=== PATIENT | female | born 1965 | race Caucasian/White ===

== ENCOUNTER 2018-05-05 07:25 | Inpatient (IN) | payer OTHER ==
[2018-05-05] VITALS (13 sets, daily range): BP systolic 93–136; BP diastolic 46–86
[~2018-05-05] VITALS: Ht 167.6 cm; Wt 84.8 kg
[2018-05-05] MEDS ORDERED: Dexamethasone 4mg/ml vial ONE (07:33)
--- NOTE | 2018-05-05 08:16 | Pre-Procedure Note/Attestation ---
Pre-Procedure Note/Attestation Complete Prior to Procedure Procedure Narrative: C34 HWR, then ACDF. Post Fusion C3-6 Indications for Procedure Pre-Operative Diagnosis: Malpositioned ADR c34, Pseudoarthrosis C56 Attestation I attest that I discussed the nature of the procedure; its benefits; risks and complications; and alternatives (and the risks and benefits of such alternatives ), prior to the procedure, with the patient (or the patient's legal compliance representative dealer). I attest that, if there was a reasonable possibility of needing a blood transfusion, the patient (or the patient's legal compliance representative dealer) was given the [facility] standardized written summary, pursuant to the [place] Blood Safety Act ([place] Health and Safety Code # 1645, as amended). I attest that I re-evaluated the patient just prior to the surgery and that there has been no change in the patient's H&P, except as documented below: Dwayne Berumen MD May 05, 2018 08:16
--- NOTE | 2018-05-05 08:17 | Brief Operative Note ---
Immediate Post Operative Note Operative Note Pre-op Diagnosis: Malpositioned ADR c34, Pseudoarthrosis C56 Procedure: C34 HWR, then ACDF. Post Fusion C3-6, B foraminotomy C56 Post-op Diagnosis: same as pre-op Findings: consistent w/pre-op dx studies Surgeon: brandon Stabilizer Operator: tyson roach Anesthesiologist: venkata Anesthesia: general Specimen: yes Complications: none Condition: stable Fluids: 1 l cryst, 250 albumin Estimated Blood Loss: volume - 150 Drains: hemovac Implant(s) used?: Yes - ldr ant peek/ cage, spinal elements post lat mass screws Dwayne Berumen MD May 05, 2018 08:17
[2018-05-05] MEDS ORDERED: BENAZEPRIL HCL20 MG ORAL (08:27)
[2018-05-05] MEDS ORDERED: Thrombin 5000 units TOPIC ONE ×5 (08:47→13:16)
[2018-05-05] MEDS ORDERED: Vancomycin 1gm vial IVPB ONE ×2 (08:47→08:56)
[2018-05-05] MEDS ORDERED: Bacitracin Oint 15gm Tube TOPIC ONE (08:47)
[2018-05-05] MEDS ORDERED: Bacitracin 50000 Units Vial ONE ×2 (08:48→08:49)
[2018-05-05] MEDS ORDERED: Gelfoam Size TOPIC ONE ×2 (08:48→08:49)
[2018-05-05] MEDS ORDERED: Bupivacaine w/Epi 0.5% 30ml Vial INJ ONE ×2 (08:48→12:52)
[2018-05-05] MEDS ORDERED: Midazolam 2mg/2ml Inj ONE (08:53)
[2018-05-05] MEDS ORDERED: fentaNYL 100 mcg/2 mL IV ONE ×2 (08:53→13:09)
[2018-05-05] MEDS ORDERED: Lidocaine 1% MPF 10mg/ml 5ml ONE (08:56)
[2018-05-05] MEDS ORDERED: Phenylephrine 10mg/ml Vial ONE (08:56)
[2018-05-05] MEDS ORDERED: Zemuron 50mg/5ml Inj IV ONE (09:05)
[2018-05-05] MEDS ORDERED: Succinylcholine 20mg/ml 10ml vial ONE (09:05)
--- NOTE | 2018-05-05 10:46 | Anethesia Preoperative Eval ---
Anesthesia Pre-op PMH/ROS General Date of Evaluation: May 05, 2018 Time of Evaluation: 09:20 Anesthesiologist: Maria M ASA Score: ASA 2 Mallampati Score Class I : Soft palate, uvula, fauces, pillars visible Class II: Soft palate, uvula, fauces visible Class III: Soft palate, base of uvula visible Class IV: Only hard plate visible Mallampati Classification: Class II Surgeon: Ata Diagnosis: Cervical radiculopathy Surgical Procedure: Revision of C3-C4 ACDF and posterior cervical spine fusion Anesthesia History: none Family History: no anesthesia problems Allergies: Coded Allergies: PEANUT (Verified Allergy, Severe, 05/05/18) THROAT SWELLS UP PENICILLINS (Verified Allergy, Severe, 05/05/18) THROAT SWELLS UP Medications: see eMAR Patient NPO?: Yes NPO Date: May 04, 2018 NPO Time: 1900 Past Medical History Cardiovascular: Reports: HTN - stable; Denies: CAD, [place], valve dz, arrhythmia, other Pulmonary: Denies: asthma, COPD, MOIRA, other Gastrointestinal/Genitourinary: Reports: GERD - mild; Denies: CRI, ESRD, other Neurologic/Psychiatric: Reports: depression/anxiety, other - chronic pain; Denies: dementia, CVA, TIA Endocrine: Denies: DM, hypothyroidism, steroids, other HEENT: Denies: cataract (L), cataract (R), glaucoma, CACHIL DEHE (L), CACHIL DEHE (R), other Hematology/Immune: Denies: anemia, DVT, bleeding disorder, other Musculoskeletal/Integumentary: Denies: OA, RA, DJD, DDD, edema, other Other: obesity PMH Narrative: as above PSxH Narrative: ACDF ACL repair Anesthesia Pre-op Phys. Exam Physician Exam Last Vital Signs Date Time Temp Pulse Resp B/P (MAP) Pulse Ox O2 Delivery O2 Flow Rate FiO2 05/05/18 08:10 98.0 74 18 136/86 (103) 97 05/05/18 08:10 Room Air Constitutional: NAD Neurologic: CN 2-12 intact Cardiovascular: RRR, no M/R/G Respiratory: CTA Gastrointestinal: S/NT/ND Airway Exam Mallampati Score: Class II MO: full Neck: stiff ROM: limited Teeth: intact Dentures: no upper, no lower Anesthesia Pre-op A/P Labs see chart Studies Pre-op Studies: EKG - NSR Risk Assessment & Plan Assessment: ASA 2 Plan: GA with ETT PONV prevention, neuromonitoring , supine and prone positions Status Change Before Surgery: No Pre-Antibiotics Drug: Ancef 2gr. Given Within 1 Hr of Incision: Yes Time Given: 10:12 Armen Franz MD May 05, 2018 10:46
[2018-05-05] MEDS: Thrombin 5000 units TOPIC ONE ×2 (10:49→13:21)
[2018-05-05] MEDS ORDERED: Morphine Sulfate 10mg/ml Inj ONE (11:30)
[2018-05-05] MEDS ORDERED: Sodium Chloride 10ml vial INJ ONE (11:31)
[2018-05-05] MEDS ORDERED: Propofol 200mg/20ml IV ONE ×2 (12:06→14:12)
--- NOTE | 2018-05-05 12:44 | NUR ---
CASE MANAGEMENT:REVIEW 05/05/18 52 YR OLD FEMALE HERE FOR ELECTIVE SURGERY SI: MALPOSITION ADR C3/4. PSEUDOARTHROSIS C5/6 98.0 74 18 136/86 97% ON RA IS: TO SURGERY FOR CERVICAL DISCECTOMY AND FUSION : CURRENTLY IN SURGERY INTERQUALL CRITERIA MET
[2018-05-05] MEDS ORDERED: Glycopyrrolate 0.2mg/ml 1ml Vial ONE (13:17)
[2018-05-05] MEDS ORDERED: Neostigmine 1mg/ml 10ml Inj ONE (13:17)
[2018-05-05] MEDS ORDERED: LR 1000ml 1,000 ML IVLG SCH (13:35)
[2018-05-05] MEDS ORDERED: DiphenhydrAMINE 50mg/ml Inj IVP PRN ×2 (13:45→14:45)
[2018-05-05] MEDS ORDERED: Ketorolac 30mg Inj IV PRN (13:45)
[2018-05-05] MEDS ORDERED: Acetaminophen (Non formulary) 100 ML IV ONE (13:45)
[2018-05-05] MEDS ORDERED: Midazolam 2mg/2ml Inj IVP PRN (13:45)
[2018-05-05] MEDS ORDERED: Metoclopramide 10mg/2ml Inj IVP PRN ×2 (13:45→15:15)
[2018-05-05] MEDS ORDERED: Meperidine 50mg/ml Inj(FOR RIGORS ONLY) IV PRN (13:45)
[2018-05-05] MEDS ORDERED: Hydromorphone 0.5mg/0.5ml inj IVP PRN (13:45)
[2018-05-05] MEDS ORDERED: Ketorolac 30mg Inj ONE (14:38)
[2018-05-05] MEDS ORDERED: Rate Change PCA 1 Each MISC PRN (14:45)
[2018-05-05] MEDS ORDERED: PCA Education Pamphlet MISC ONE (14:45)
[2018-05-05] MEDS ORDERED: PCA HYDROmorphone 1mg/ml 30 ML IV PRN ×2 (14:45→18:56)
[2018-05-05] MEDS ORDERED: Naloxone 0.4mg/ml Inj IVP PRN (14:45)
[2018-05-05] MEDS ORDERED: Milk of Magnesia 30ml Ud ORAL PRN (15:15)
--- NOTE | 2018-05-05 15:54 | Immediate Post-Op Evaluation ---
Immediate Post-Op Evalulation Immediate Post-Op Evalulation Procedure: Revision of ACDF C3-C4, Laminotomy with decompression and interbody fusion Date of Evaluation: May 05, 2018 Time of Evaluation: 15:52 IV Fluids: 1200 Blood Products: Albumin 250 Estimated Blood Loss: 150 Urinary Output: 300 Blood Pressure Systolic: 104 Blood Pressure Diastolic: 58 Pulse Rate: 84 Respiratory Rate: 20 O2 Sat by Pulse Oximetry: 99 Temperature (Fahrenheit): 97.7 Pain Score (1-10): 2 Nausea: No Vomiting: No Complications none Patient Status: reacts, patent, extubated, none Hydration Status: adequate Armen Franz MD May 05, 2018 15:54
--- NOTE | 2018-05-05 17:00 | NUR ---
NURSE NOTES: REC'D FROM PACU SP HARDWARE REMOVAL C3-C4, ACDF C3-C4. POSTERIOR FUSION C3-C6, BILATERAL FORAMINOTOMY C5-C6. DROWSY BUT AROUSABLE. V/S TAKEN. PAIN SCALE 5/10. IV INFUSING . WITH JAVA PROGRAMMER DILAUDID. INSTURCTED TO PUSH PAIN BUTTON NEEDED. ANTERIOR AND POSTERIOR DRESSING DRY AND INTACT. ICE PACK ON. HEMOVAC IN PLACE DRAINING SERO SANGUINOUS DRAINAGE. NO C/O NUMBNESS/ TINGLING BOTH HANDS. IN NO ACUTE DISTRESS.
--- NOTE | 2018-05-05 17:38 | NUR ---
NURSE NOTES: DR Tony ENGEL CALLED RE PT'S [facility]. WILL SEE PT LATER.
[2018-05-05] MEDS: D5 1/2NS 1,000 ML IV SCH (18:15)
[2018-05-05] MEDS: ceFAZolin sod 1 GM in D5W 55 ML IV SCH (18:16)
[2018-05-05] MEDS: Docusate Sod/Senna tab ORAL SCH (18:20)
--- NOTE | 2018-05-05 18:39 | Cardiology Progress Note ---
Assessment/Plan Status Narrative [id number] Objective Last 24 Hour Vital Signs Date Time Temp Pulse Resp B/P (MAP) Pulse Ox O2 Delivery O2 Flow Rate FiO2 05/05/18 17:00 17 05/05/18 16:51 97.9 81 15 112/65 96 Nasal Cannula 3 05/05/18 16:46 97.9 05/05/18 16:46 97.9 05/05/18 16:45 15 05/05/18 16:37 79 17 108/67 95 Nasal Cannula 3 05/05/18 16:30 13 05/05/18 16:29 97.8 05/05/18 16:16 78 18 108/65 100 Nasal Cannula 3 05/05/18 16:15 15 05/05/18 16:05 82 18 108/66 100 Simple Mask 6 05/05/18 15:59 18 05/05/18 15:54 83 11 104/58 100 Simple Mask 6 05/05/18 15:54 84 20 99 05/05/18 15:49 93 15 93/46 100 Simple Mask 6 05/05/18 15:44 97.5 90 20 103/52 99 Simple Mask 6 05/05/18 08:10 98.0 74 18 136/86 (103) 97 05/05/18 08:10 Room Air Sanju Huffman MD May 05, 2018 18:39
[2018-05-05] MEDS ORDERED: Chloraseptic Spray 20mL Bottle ORAL ONE (18:45)
[2018-05-05] MEDS ORDERED: HYDROcodone/Acetamin 10/325 tab ORAL PRN (18:45)
[2018-05-05] MEDS ORDERED: Cyclobenzaprine 10mg Tab ORAL PRN (18:45)
[2018-05-05] MEDS ORDERED: Chloraseptic Spray 20mL Bottle ORAL PRN (18:54)
[2018-05-05] MEDS: PCA shift volume MISC SCH (19:00)
--- NOTE | 2018-05-05 19:00 | NUR ---
NURSE NOTES: RESTING. IN NO ACUTE DISTRESS.
--- NOTE | 2018-05-05 19:35 | NUR ---
NURSE NOTES: Received report & pt from DOMINGA Sun. Pt lying in bed, a&ox4, on O2 via NC @ 3LPM. No s/s of acute distress & c/o 5/10 pain. Pt's pain managed by LABOR LAW PROFESSOR pump. Red intact & draining yellow urine output to gravity. Hemovac intact & compressed. Surgical dressing anterior C/D/I with stain & posterior C/D/I. IV site intact with IVF running as ordered. Bed in lowest position, call light & LABOR LAW PROFESSOR pump within reach. Will continue to monitor.
--- NOTE | 2018-05-05 20:00 | Operative Note - Dictated ---
DATE OF OPERATION: 05/05/2018 SURGEON: Dwayne Berumen M.D. PREOPERATIVE DIAGNOSES: 1. Status post prior cervical fusion at C5-C6 and C4-C5 with artificial disk replacement, C3-C4. 2. Malposition and dysfunctional artificial disk, C3-C4. 3. Pseudoarthrosis, C5-C6. 4. Radiculopathy, left greater than right. OPERATIVE PROCEDURE IN DETAIL: 1. Removal of artificial disk prosthesis, ProDisc-C, cervical spine, C3-C4. 2. Partial corpectomy, inferior portion of C3 and superior portion of C4 with neural foraminotomies and uncovertebrectomies partial, C3-C4. 3. Interbody fusion using cervical LDR implants. 4. Use of local autograft and Signafuse allograft. 5. Anterior instrumentation using LDR plates. 6. Use of operating microscope. 7. Neurodiagnostic monitoring. 8. Use of fluoroscopy. ESTIMATED BLOOD LOSS: 30 mL. INDICATIONS: The patient is a very pleasant woman, status post prior cervical fusion at C4, C5, C6 and artificial disk at C3-C4, implant at C3-C4, malpositioned, requiring revision. Pros, cons, risks and benefits have been discussed and she elected to proceed. OPERATIVE PROCEDURE IN DETAIL: The patient was taken to the operating suite. After general endotracheal anesthesia was obtained, Red catheter was placed. The neck was then prepped and draped in usual sterile fashion after a localizer confirmed the incision site. At this point, the skin was infiltrated with Marcaine with epinephrine. A transverse incision was carried out on the right side at C3-C4 through a skin crease and was taken down through the subcutaneous. Platysma was incised, using a Bovie. Interval medial to the sternocleidomastoid was identified. Carotid sheath was palpated. The interval, then medial to the sternocleidomastoid was bluntly dissected and taken down to the prevertebral fascia. Shadow-Line retractors were put in place. A needle was placed into the levels, felt to be at the C3-C4 level and this was confirmed. Bovie was used to remove excess scar tissue. Mcallen posts were put into place to apply gentle distraction across the disk space. There was a moderate amount of heterotopic ossification, which was needed to be removed in order to remove the prosthesis. Once gentle distraction was obtained, osteotome was used to disrupt the interface of the polyethylene and the metallic endplate inferiorly. This then allowed for removal of the polyethylene. At this point, a quarter-inch osteotome was placed at the interface of the implants and the bone, and this allowed for removal of the implants. Once this was completed, under high-power microscopic visualization, partial corpectomy of inferior portion of C3 and superior portion of C4 was performed. Complete uncovertebrectomies were performed bilaterally. The posterior osteophytes were also removed with meticulous micro techniques using a high-speed drill as well as Microsect curette and Microsect malou. Once satisfied with the posterior decompression as well as a foraminal decompression, the appropriate sized LDR cage was then packed with local autograft and Signafuse. The implant was inserted and under fluoroscopic guidance, it was noted to be in excellent position. The inferior and subsequently superior plates were inserted while pulling back on the law to avoid retropulsion. At this point, once satisfied with fixation, decision was made to remove all Mcallen posts and the display artist. Additional bone graft was used to fill in the ProDisc-C keel channel. Copious irrigation was achieved. Meticulous hemostasis was achieved. Medium-size Hemovac drain was placed. Platysma was repaired using 3-0 Vicryl and subcutaneous closure using 4-0 Vicryl. Dermabond was applied. Sterile dressing was applied prior to repositioning and unfortunately, the drain pulled out. Decision was kept to monitor the patient. A wake-up test was performed before starting the posterior procedure. Sponge and needle counts for this procedure was correct. Dwayne Marian Berumen DR: CHRISTIANO JOB#: [id number] CC:
--- NOTE | 2018-05-05 21:21 | NUR ---
NURSE NOTES: Pt had clear emesis 200ml. Zofran PRN given as ordered. Will continue to monitor.
--- NOTE | 2018-05-05 22:15 | Operative Note - Dictated ---
DATE OF OPERATION: 05/05/2018 SURGEON: Dwayne Berumen M.D. MATTRESS INSPECTOR: Gautam Orosco PA-C. ANESTHESIA: Armen Franz M.D. ANESTHESIA TYPE: General endotracheal anesthesia. PREOPERATIVE DIAGNOSES: 1. Status post anterior fusion, C3-C4. 2. Status post hardware removal, C3-C4. 3. Pseudoarthrosis, C5-C6. POSTOPERATIVE DIAGNOSES: 1. Status post anterior fusion, C3-C4. 2. Status post hardware removal, C3-C4. 3. Pseudoarthrosis, C5-C6. PROCEDURE: 1. Posterior spinal fusion, C3, C4, C5, C6. 2. Lateral mass screw fixation bilaterally, C4, C5, C6. 3. Bilateral laminal foraminotomies, C5-C6. 4. Use of operating microscope. 5. Use of fluoroscopy. 6. Neurodiagnostic monitoring. ESTIMATED BLOOD LOSS: Total 150. FLUIDS: In total 1 liter crystalloid and 250 albumin. INDICATIONS: The patient is a very pleasant woman who previously had undergone cervical fusion C4, C5, C6 artificial disc, C3-C4 requiring hardware removal and refusion at the C3-C4. She required posterior fixation and stabilization C3 through C6. Pros, cons, risks and benefits of surgery were discussed. She elected to proceed. RISK NOTE: The patient was explained in detail risks, benefits of surgery to include, but not be limited to those of bleeding, infection, damage to nerves, vessels, and tendons, anesthetic risk, allergic reaction, aspiration, possibly . The patient understood and wished to proceed. OPERATIVE PROCEDURE IN DETAIL: Under benefits of general anesthesia, the patient was turned prone onto a radiolucent table after Plata pins were attached and she was attached firmly to the [place] head support. Chest bolsters were in place. All bony prominences were well padded. The knees were bent. The posterior neck was prepped and draped in usual sterile fashion. Fluoroscopically the levels were verified. Skin was infiltrated with use of Marcaine with epinephrine. Incision was carried out from C3 through C7. Subperiosteal dissection was carried out bilaterally. Localization was confirmed at the C3-C4 level. At this point, facilities plant engineer holes were then made at C3, C4, C5, and C6 bilaterally using a high-speed drill. The 12 mm drill guide 2.0 was then chosen and the lateral mass screw holes were all drilled through. Pedicle sound was used to verify bony contact throughout. At this point, under microscopic visualization, hemilaminectomy was performed and foraminotomy first on the left then on the right at C5-C6 using standard fashion by removing inferior portion of C5 superior portion of C6 as well as the medial facet. The nerve roots were clearly very compressed. Kerrison punch and Microsect curettes were then used to remove the remaining bleeding edge of the facet. Once both neural foramen were probed free and were patent, copious irrigation was performed. FloSeal was applied. At this point, the 12 mm articulated lateral mass screws were all sequentially placed. There was the adjustment of the screws on the left at C4 due to altered anatomy. Ultimately, satisfied with hardware placement, the appropriate sized 50 mm curved rods were applied and all screw heads were attached to the joon and torqued to the appropriate level. Copious irrigation was performed. The lamina was drilled out at C3, C4, C5 and C6 and 2 strips of Bacterin bone 50 mm in length were chosen and placed into the posterior lateral gutters. At this time, decision was made to close. Please note that prior to bone graft placement, copious irrigation was performed. We did decide to place 1 g of vancomycin two-third below the fascia, one-third above the fascia. Fascia was repaired using #1 Vicryl, subcutaneous closure using 2-0 Vicryl. Dermabond and sterile dressing was applied. Please note that a subfascial drain was placed. The patient overall tolerated the procedure well. Sponge and needle counts were correct. Dwayne Berumen M.D. DR: JOSE JOB#: [id number] CC:
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
[2018-05-06] VITALS: BP 108/64
[2018-05-06] MEDS: D5 1/2NS 1,000 ML IV SCH ×3 (02:40→23:16)
[2018-05-06] MEDS: ceFAZolin sod 1 GM in D5W 55 ML IV SCH ×2 (02:41→10:22)
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
[2018-05-06 04:00] VITALS: BP 106/62
[2018-05-06] MEDS: HYDROmorphone 1mg/ml Carpuject SUBQ PRN (05:57)
[2018-05-06] MEDS: PCA shift volume MISC SCH ×2 (07:00→19:13)
--- NOTE | 2018-05-06 07:09 | 48 Hour Post Anesthesia Eval ---
Post Anesthesia Evaluation Procedure: Revision of ACDF C3-C4, Laminotomy with decompression and interbody fusion Date of Evaluation: May 06, 2018 Time of Evaluation: 06:33 Blood Pressure Systolic: 106 0: 62 Pulse Rate: 92 Respiratory Rate: 17 Temperature (Fahrenheit): 98.2 O2 Sat by Pulse Oximetry: 97 Airway: patent Nausea: No Vomiting: No Pain Intensity: 3 Hydration Status: adequate Cardiopulmonary Status: Stable Mental Status/LOC: patient returned to baseline Follow-up Care/Observations: 0 Post-Anesthesia Complications: 0 Follow-up care needed: N/A Selvin Dumont MD May 06, 2018 07:09
--- NOTE | 2018-05-06 07:11 | NUR ---
HAND-OFF: Report given to DOMINGA Sun.
[2018-05-06 07:28] LABS: ANION GAP 8 mmol/L (5-15); BLOOD UREA NITROGEN 11 mg/dL (7-18); CALCIUM 8.2 MG/DL (8.5-10.1); CARBON DIOXIDE 29 MMOL/L (21-32); CHLORIDE 103 MMOL/L (98-107); CREATININE 1.1 MG/DL (0.55-1.30); POTASSIUM 3.9 MMOL/L (3.5-5.1); SODIUM 139 MMOL/L (136-145)
--- NOTE | 2018-05-06 07:35 | NUR ---
NURSE NOTES: AWAKE/ALERT. PAIN SCALE 9/10. ENCOURAGED TO PUSH TRAINING DEVELOPMENT SPECIALIST BUTTON FOR PAIN. ANTERIOR AND POST NECK DRESSING DRY AND INTACT. NO C/O NUMBNESS/TINGLING BOTH HANDS. ENCOURAGED TO MOVE BLE. IN NO ACUTE DISTRESS.
[2018-05-06 08:00] VITALS: BP 105/67
[2018-05-06] MEDS: Docusate Sod/Senna tab ORAL SCH ×2 (08:22→18:12)
[2018-05-06] MEDS: Benazepril 10mg tab ORAL SCH (08:23)
[2018-05-06] MEDS ORDERED: Sterile Water Irrig 1000ml IRRIG ONE (09:30)
[2018-05-06] MEDS ORDERED: LR 1000ml ONE (09:30)
[2018-05-06] MEDS ORDERED: NS Irrig 1000ml ONE (09:30)
[2018-05-06] MEDS ORDERED: Ketorolac 30mg Inj ONE (09:30)
--- NOTE | 2018-05-06 11:13 | Diagnostic Imaging Report ---
Indication: Neck Pain Findings: 5 fluoroscopic views of the cervical spine were obtained. Intraoperative imaging consists of the several frontal and lateral views showing removal of the disc prosthesis at the C3-4 followed by anterior fusion at C3-4 C4-5 and C5-6. IMPRESSION: Intraoperative imaging
[2018-05-06 12:00] VITALS: BP 123/73
--- NOTE | 2018-05-06 12:16 | NUR ---
CASE MANAGEMENT:REVIEW 05/06/18 SI: POD #1 S/P ARTIFICIAL DISC REPLACEMENT 98.5 85 18 123/73 97% ON 3L/NC GLUCOSE+121 IS: FINANCIAL COST ANALYST DILAUDID LOTENSIN PO QD PEPCID PO BID IV ZOFRAN Q4HRS PRN IVF@100/HR : MED/SURG STATUS 3 EAST
--- NOTE | 2018-05-06 13:46 | NUR ---
P.T Note: late entry 929 P.T evaluation completed and treatment initiated per spinal protocol. Please refer to P.T evaluation for current functional status. Skilled P.T service is warranted to ensure safety and compliance with spinal precautions in performing ADL/functional mobilities. Thank you for this referral.
[2018-05-06 16:00] VITALS: BP 131/73
--- NOTE | 2018-05-06 18:10 | Orthopedic Spine Progress Note ---
Ortho Spine - Progress Note Subjective Symptoms: c/o post-op neck pain, improved - as compared to pre-op Objective Vital Signs: Last 24 Hour Vital Signs Date Time Temp Pulse Resp B/P (MAP) Pulse Ox O2 Delivery O2 Flow Rate FiO2 05/06/18 16:00 19 05/06/18 16:00 98.2 86 19 131/73 (92) 97 05/06/18 14:00 Room Air 05/06/18 12:00 18 05/06/18 12:00 98.5 85 18 123/73 (90) 97 05/06/18 09:00 Nasal Cannula 3.0 05/06/18 08:23 105/67 05/06/18 08:00 18 05/06/18 08:00 97.5 81 18 105/67 (80) 96 05/06/18 07:09 92 17 97 05/06/18 04:00 98.2 92 18 106/62 (77) 97 05/06/18 04:00 17 05/06/18 00:00 17 05/06/18 00:00 98.1 84 19 108/64 (79) 95 05/05/18 21:00 Nasal Cannula 3.0 05/05/18 20:00 18 05/05/18 20:00 97.6 73 17 114/69 (84) 96 05/05/18 19:00 98.5 75 18 117/68 (84) 98 05/05/18 18:30 98.6 85 18 116/70 (85) 98 I&O: Intake and Output 05/05/18 05/06/18 19:00 07:00 Intake Total 1725 ml 1100 ml Output Total 570 ml 550 ml Balance 1155 ml 550 ml Intake Oral 120 ml IV Total 1355 ml 1100 ml Other 250 ml Output Urine Total 400 ml 300 ml Emesis 200 ml Drainage Total 20 ml 50 ml Estimated Blood Loss 150 ml # Voids 1 1 Wound: clean, intact Drains: hemovac Neuro Status: normal Assessment Procedure Performed: C34 HWR, then ACDF. Post Fusion C3-6, B foraminotomy C56 Plan Plan: PT, pain management, continue drain - probably remove in am, discharge plan - possibly in am Dwayne Berumen MD May 06, 2018 18:10
[2018-05-06] MEDS ORDERED: PCA HYDROmorphone 1mg/ml 30 ML IV PRN (18:32)
--- NOTE | 2018-05-06 18:50 | NUR ---
NURSE NOTES: ASSISTED OOB TO BSC. WILL CHECK FOR VOIDING.
--- NOTE | 2018-05-06 19:25 | NUR ---
HAND-OFF: Report given to Marla WRIGHT RN.
--- NOTE | 2018-05-06 19:30 | NUR ---
NURSE NOTES: Received report & pt from DOMINGA Sun. Pt lying in bed, a&ox4, in room air. No s/s of acute distress & c/o 5/10 pain. Pt's pain managed by PRACTICAL NURSING TEACHER pump. Hemovac intact & compressed. Surgical dressing anterior C/D/I with stain & posterior C/D/I. IV site intact with IVF running as ordered. Bed in lowest position, call light & PRACTICAL NURSING TEACHER pump within reach. Will continue to monitor.
[2018-05-06 20:00] VITALS: BP 158/95
--- NOTE | 2018-05-06 20:09 | Cardiology Progress Note ---
Assessment/Plan Status Narrative [id number] Assessment/Plan 1. Postoperative pain. 2. Cervical spine injury. 3. Hypertension history. drain in still in palce already walked no bm ate soem still has alot pain hoem possible in am dvt ppx IS Subjective Cardiovascular: Denies: chest pain, lightheadedness, palpitations Respiratory: Denies: shortness of breath Gastrointestinal/Abdominal: Denies: abdominal pain Genitourinary: Denies: burning Objective Last 24 Hour Vital Signs Date Time Temp Pulse Resp B/P (MAP) Pulse Ox O2 Delivery O2 Flow Rate FiO2 05/06/18 19:59 17 05/06/18 16:00 19 05/06/18 16:00 98.2 86 19 131/73 (92) 97 05/06/18 14:00 Room Air 05/06/18 12:00 18 05/06/18 12:00 98.5 85 18 123/73 (90) 97 05/06/18 09:00 Nasal Cannula 3.0 05/06/18 08:23 105/67 05/06/18 08:00 18 05/06/18 08:00 97.5 81 18 105/67 (80) 96 05/06/18 07:09 92 17 97 05/06/18 04:00 98.2 92 18 106/62 (77) 97 05/06/18 04:00 17 05/06/18 00:00 17 05/06/18 00:00 98.1 84 19 108/64 (79) 95 05/05/18 21:00 Nasal Cannula 3.0 General Appearance: no apparent distress, alert Cardiovascular: normal rate Respiratory/Chest: lungs clear Abdomen: normal bowel sounds, non tender, soft Extremities: no swelling Intake and Output 05/05/18 05/06/18 19:00 07:00 Intake Total 1725 ml 1100 ml Output Total 570 ml 550 ml Balance 1155 ml 550 ml Intake Oral 120 ml IV Total 1355 ml 1100 ml Other 250 ml Output Urine Total 400 ml 300 ml Emesis 200 ml Drainage Total 20 ml 50 ml Estimated Blood Loss 150 ml # Voids 1 1 Laboratory Tests Test 05/06/18 06:30 Sodium Level 139 MMOL/L (136-145) Potassium Level 3.9 MMOL/L (3.5-5.1) Chloride Level 103 MMOL/L (98-107) Carbon Dioxide Level 29 MMOL/L (21-32) Anion Gap 8 mmol/L (5-15) Blood Urea Nitrogen 11 mg/dL (7-18) Creatinine 1.1 MG/DL (0.55-1.30) Estimat Glomerular Filtration Rate 51.9 mL/min (>60) Glucose Level 121 MG/DL (74-106) H Calcium Level 8.2 MG/DL (8.5-10.1) L Sanju Huffman MD May 06, 2018 20:09
--- NOTE | 2018-05-06 20:30 | Progress Note ---
DATE: 05/06/2018 ACUTE PAIN MANAGEMENT PHYSICIAN PROGRESS NOTE MEDICATIONS: Medication administration record reviewed. Medications include Restoril, Cassy-Colace, Phenergan, Chloraseptic spray, Zofran, Narcan, Dilaudid BRUSH HOLDER INSPECTOR, milk of magnesia, Molina, Pepcid, Benadryl, Flexeril, Catapres, Lotensin, Mylanta, and Tylenol. LABORATORY STUDIES: From this morning, 05/06/2018, shows sodium 139, potassium 3.9, chloride 103, bicarb 29, BUN 11, creatinine 1.1, and glucose was 121. Calcium 8.2. OBJECTIVE: Vital signs within normal limits. Afebrile, blood pressure 131/73, oxygen saturation 97% on room air, respirations 18, and pulse 86. I saw the patient at the bedside with the surgeon, Dr. Dwayne Berumen and the nurse RN, Corinne. The patient is breathing, phonating, and swallowing within normal limits after her neck surgery. Her neck dressing appears clean and dry. The Hemovac drain output was 50 mL overnight last night and at least 50 mL during today's day shift. Dr. Berumen decided to keep the indwelling cervical spine drain catheter in in place overnight again. We will reassess the volume in the morning. The patient has been able to ambulate out of bed. She has been using the BRUSH HOLDER INSPECTOR, which I will continue overnight and then discontinue at 6 a.m. tomorrow. I will continue the breakthrough doses of subcutaneous Dilaudid for breakthrough pain along with Molina, which we use for outpatient usage as well. The patient has been advancing her diet without any nausea symptoms. She is breathing comfortably and using her incentive spirometer. We will continue to use sequential compression pneumatic devices in place for DVT prophylaxis. Overall, the patient is progressing quite well after her revision cervical spine instrumentation surgery. We will continue supportive care and reassess her condition tomorrow with possible discharge within the next 24 hours. Akhil Romeo M.D. DR: CYNDY JOB#: [id number] CC:
--- NOTE | 2018-05-06 21:00 | NUR ---
NURSE NOTES: Pt able to urinate 450ml yellow urine without any pain. Will continue to monitor.
[2018-05-07 00:40] VITALS: BP 163/89
[2018-05-07 01:00] VITALS: BP 156/88
[2018-05-07 04:55] VITALS: BP 168/98
[2018-05-07] MEDS: HYDROmorphone 1mg/ml Carpuject SUBQ PRN (05:14)
--- NOTE | 2018-05-07 05:15 | NUR ---
NURSE NOTES: Pt's hemovac taken out by Dr. Romeo with 2x2 & tegaderm. Anterior surgical dressing also changed by Dr. Romeo with 2x2 & tegaderm. No bleeding noted.
[2018-05-07] MEDS ORDERED: HYDROcodone/Acetamin 10/325 tab ORAL SCH (06:15)
[2018-05-07] MEDS: PCA shift volume MISC SCH (07:00)
--- NOTE | 2018-05-07 07:45 | NUR ---
HAND-OFF: Report given to DOMINGA Ortiz.
[2018-05-07 08:00] VITALS: BP 147/84
--- NOTE | 2018-05-07 08:00 | NUR ---
NURSE NOTES: Patient is awake when name called and alert,respirations unlabored .IV fluids and CLINICAL INFORMATICS SPECIALIST as ordered.Dressing to the Anterior and posterior intact clean and dry ,Neck collar in place.No complaints of numbness or tingling . Call light within reach,will monitor.
[2018-05-07] MEDS ORDERED: HYDROcodone/Acetamin 10/325 tab ORAL PRN (09:00)
--- NOTE | 2018-05-07 09:01 | Orthopedic Spine Progress Note ---
Ortho Spine - Progress Note Subjective Symptoms: c/o post-op neck pain, improved - as compared to pre-op Objective Vital Signs: Last 24 Hour Vital Signs Date Time Temp Pulse Resp B/P (MAP) Pulse Ox O2 Delivery O2 Flow Rate FiO2 05/07/18 07:59 18 05/07/18 05:19 168/98 05/07/18 04:55 98.0 103 18 168/98 (121) 96 05/07/18 04:00 18 05/07/18 01:00 99 156/88 (110) 05/07/18 00:40 98.0 102 18 163/89 (113) 96 05/07/18 00:00 18 05/06/18 21:00 Room Air 05/06/18 20:00 98.5 92 18 158/95 (116) 95 05/06/18 19:59 17 05/06/18 16:00 19 05/06/18 16:00 98.2 86 19 131/73 (92) 97 05/06/18 14:00 Room Air 05/06/18 12:00 18 05/06/18 12:00 98.5 85 18 123/73 (90) 97 I&O: Intake and Output 05/06/18 05/07/18 19:00 07:00 Intake Total 1375 ml 1200 ml Output Total 690 ml 1650 ml Balance 685 ml -450 ml Intake Oral 220 ml IV Total 1155 ml 1200 ml Output Urine Total 600 ml 1650 ml Emesis 50 ml Drainage Total 40 ml Wound: clean, intact Drains: none Neuro Status: normal Assessment Procedure Performed: C34 HWR, then ACDF. Post Fusion C3-6, B foraminotomy C56 Plan Plan: PT, pain management, discharge to home Dwayne Berumen MD May 07, 2018 09:01
[2018-05-07] MEDS: Docusate Sod/Senna tab ORAL SCH (10:19)
[2018-05-07] MEDS: Benazepril 10mg tab ORAL SCH (10:22)
[2018-05-07] MEDS: D5 1/2NS 1,000 ML IV SCH (10:23)
[2018-05-07 12:00] VITALS: BP 135/81
--- NOTE | 2018-05-07 13:04 | NUR ---
CASE MANAGEMENT:REVIEW 05/07/18 SI: POD #2 S/P ARTIFICIAL DISC REPLACEMENT 97.9 93 19 142/84 97% ON RA IS: FINISHED YARN EXAMINER DILAUDID LOTENSIN PO QD PEPCID PO BID IV ZOFRAN Q4HRS PRN IVF@100/HR : MED/SURG STATUS 3 EAST DCP: PATIENT IS FROM HOME
--- NOTE | 2018-05-07 14:15 | Progress Note ---
DATE: 05/07/2018 ACUTE PAIN MANAGEMENT PHYSICIAN PROGRESS NOTE: MEDICATIONS: Medication administration record reviewed. Medications include IV fluids, Cassy-Colace, Pepcid, Lotensin, Holt, Dilaudid SECURITY SYSTEMS TECHNICIAN, Restoril, Narcan, Tylenol, milk of magnesia, Chloraseptic spray, Catapres, Flexeril, Zofran, Phenergan, Dilaudid, Mylanta. LABORATORY STUDIES: No interval laboratory studies. Yesterday's BMP was within normal limits. OBJECTIVE: VITAL SIGNS: Afebrile, pulse 99, respirations 18, blood pressure 156/88, oxygen saturation 96% on room air. I saw the patient at the bedside with the nurse, DOMINGA Nicole. I discussed the case with the surgeon, Dr. Berumen. The patient has been breathing comfortably and shows no signs of shortness of breath. She has been advancing diet and using SECURITY SYSTEMS TECHNICIAN Dilaudid unit with good efficacy. At this point, I will discontinue the SECURITY SYSTEMS TECHNICIAN. She continues to use the breakthrough subcutaneous Dilaudid injections. I will have the nurse to dose her with Holt as well and I have left a prescription for Holt and Flexeril for outpatient usage, quantity of 75 and 25 respectively. The patient does not appear to be overly anxious. She has not been very compliant using her incentive spirometer. Thankfully, she shows no postoperative fevers from atelectasis. But, I did encourage much more aggressive and frequent use of incentive spirometer, which she will take home with her. The patient has been able to move in and out of bed to use the restroom. The patient feels comfortable for discharge trial home to her family later today and I agree with Dr. Berumen that a trial is warranted. At the bedside with the nurse present, the patient was sitting at the side of the bed. I removed the [place] collar to examine the anterior and posterior cervical spine wounds. Both anterior and posterior cervical spine dressings were removed. The anterior incision was clean and dry with Dur[place]ond sealant intact. There is no evidence for erythema or exudate. I swabbed the incision site with alcohol prep and replaced a sterile 2 x 2 gauze with a 4 x 6 Opsite. Regarding the posterior cervical spine wound, the dressing was removed showing the incision line clean and dry with no evidence for erythema or exudate. The suture line is intact. I put the Hemovac drain taken off of suction, and the end-expiration, I personally removed the indwelling posterior cervical spine drain catheter. The tip was intact. Alcohol swab was applied to the drain hole site in the incision line. Sterile 2 x 2 gauze dressings were applied generously over the incision line and the drain hole site followed by two 4 x 6 Tegaderm dressings. There were no complications. The [place] collar was replaced in a good position. The patient will follow up in Dr. Berumen's office in approximately 2 weeks for surgical followup. Akhil Romeo M.D. DR: PANTERA JOB#: [id number] CC:
[2018-05-07] MEDS ORDERED: D5 1/2NS 1000ml IV ONE (14:31)
[2018-05-07] MEDS ORDERED: Tubing IV Secondary IV ONE (14:31)
--- NOTE | 2018-05-07 14:33 | NUR ---
NURSE NOTES: Discharge at this time,discharge instructions give,Dressing changed as ordered per DR Berumen this am.IV removed,ID hospital band removed.patient has personal belongings.Patient family here and patient assisted to private vehicle.Discharge prescription given to patient.
--- NOTE | 2018-05-08 10:30 | Discharge Summary ---
Discharge Summary Discharge Summary _ DATE OF ADMISSION: 05/05/2018 DATE OF DISCHARGE: 05/07/2018 DISCHARGED BY: Dr. Dwayne Berumen SURGEON: Dr. Dwayne Berumen TELEVISION ANCHOR: Dr. Akhil Huffman BRIEF HOSPITAL COURSE: Patient is a 52-year-old female, who previously undergone cervical fusion C4, C5 , C6 artificial disc, C3-C4 requiring hardware removal and refusion at the C3- C4. She required posterior fixation and stabilization C3 through C6. She was admitted on 05/05/2018 and underwent posterior spinal fusion, C3, C4, C5, C6. She tolerated procedure well. Surgery was uneventful. Post-operatively, patient was admitted for post-op care. Cervical drain in place. Output was monitored. She was placed on SCDs for DVT prophylaxis and was encouraged use of incentive spirometer. She was followed by nuclear plant technical advisor and sign painter. She was given EQUITY ANALYST Dilaudid. She was given GERD prophylaxis. Patient was given pain management. She was seen by PT. Diet was advanced. Incision was clean, dry and intact. The indwelling posterior cervical spine drain catheter was removed. Patient was ambulating well with [place] collar with good pain control and was tolerating diet. Patient was eventually cleared for discharge home. PREOPERATIVE DIAGNOSES: 1. Status post anterior fusion, C3-C4. 2. Status post hardware removal, C3-C4. 3. Pseudoarthrosis, C5-C6. POSTOPERATIVE DIAGNOSES: 1. Status post anterior fusion, C3-C4. 2. Status post hardware removal, C3-C4. 3. Pseudoarthrosis, C5-C6. PROCEDURE: 1. Posterior spinal fusion, C3, C4, C5, C6. 2. Lateral mass screw fixation bilaterally, C4, C5, C6. 3. Bilateral laminal foraminotomies, C5-C6. 4. Use of operating microscope. 5. Use of fluoroscopy. 6. Neurodiagnostic monitoring. (Refer to Operative Report) DISCHARGE DISPOSITION: Patient was discharged home. DISCHARGE MEDICATIONS: Refer to Medication Reconciliation Sheet. DISCHARGE INSTRUCTIONS: Post-op instructions given. Follow-up in a week. I have been assigned to complete a DC summary on this account, I was not involved with the patient's management. Deborah Burton NP May 08, 2018 10:30
== END 2018-05-07 14:32 | disposition home or self-care (01) | DRG 454 ==
LOC: SDSOVERFLO 07:25 → 3E 16:35
DX: T84.028A Dislocation of other internal joint prosthesis, initial encounter (principal); M96.0 Pseudarthrosis after fusion or arthrodesis; M54.12 Radiculopathy, cervical region; E66.9 Obesity, unspecified; Z68.30 Body mass index [BMI] 30.0-30.9, adult; I10 Essential (primary) hypertension; Z88.0 Allergy status to penicillin; G89.18 Other acute postprocedural pain; G89.4 Chronic pain syndrome
CPT/HCPCS: 36415; 72040; 76000; 80048; 86850; 86900; 86901; 87081; 94003; 94150; C9399; J2250; J2370; J2405; J2710